=== PATIENT | male | born 1980 ===

== ENCOUNTER 2017-10-06 10:24 | Emergency (ER) | payer OTHER ==
[2017-10-06 12:17] VITALS: BP 121/83
--- NOTE | 2017-10-06 13:19 | ED ---
Back Pain - HPI Summary HPI Summary: Patient is a 36-year-old male who presents emergency department for tailbone pain times several days. Patient states he was at the park with his son a few days ago when he slipped on the wet ground and landed onto his bottom. He has been taking NSAIDs without relief of pain. Pain is worse with sitting. Standing makes symptoms better. He denies bowel or bladder incontinence or retention. Denies numbness, tingling or weakness to legs. Symptoms are mild in severity. No past medical history. - History of Current Complaint Chief Complaint: EDBackInjuryPain Stated Complaint: LWR BACK PAIN Time Seen by Provider: 10/06/17 11:34 Hx Obtained From: Patient Pain Intensity: 2 Pain Scale Used: 0-10 Numeric - Allergies/Home Medications Allergies/Adverse Reactions: Allergies Allergy/AdvReac Type Severity Reaction Status Date / Time No Known Allergies Allergy Verified 10/06/17 10:32 Home Medications: Home Medications NK [No Home Medications Reported] 10/06/17 [History Confirmed 10/06/17] PMH/Surg Hx/FS Hx/Imm Hx Previously Healthy: Yes Infectious Disease History: No Infectious Disease History: Denies: Traveled Outside the [place] in Last 30 Days - Social History Occupation: Employed Full-time Lives: With Family Alcohol Use: None Substance Use Type: Reports: None Smoking Status (MU): Never Smoked Tobacco Review of Systems Genitourinary: Negative Positive: Other - low back pain. Neurological: Negative Negative: Weakness, Paresthesia, Numbness All Other Systems Reviewed And Are Negative: Yes Physical Exam Triage Information Reviewed: Yes Vital Signs On Initial Exam: Initial Vitals Temp Pulse Resp BP Pulse Ox 98.6 F 86 15 128/84 100 10/06/17 10:28 10/06/17 10:28 10/06/17 10:28 10/06/17 10:28 10/06/17 10:28 Vital Signs Reviewed: Yes Appearance: Positive: Well-Appearing - Pt. standing in room in NAD. Skin: Positive: Warm, Dry Musculoskeletal: Positive: Other - Pain to coccyx on palpation. Full strength in legs. Ambulating without difficulty. Neurological: Positive: Normal, CN Intact II-III Psychiatric: Positive: Normal Diagnostics - Vital Signs Vital Signs Temp Pulse Resp BP Pulse Ox 10/06/17 12:16 98.2 F 82 17 121/83 97 10/06/17 10:28 98.6 F 86 15 128/84 100 - Laboratory Lab Statement: Any lab studies that have been ordered have been reviewed, and results considered in the medical decision making process. Back Pain Course/Dx - Course Course Of Treatment: Pt. presenting to the ER for a tailbone injury. He has no neurological deficits. Xrays were ordered. Before pt. went for xray he noted he needs to be discharged from the ER in 20 minutes. Explained xrays will not be performed and read in 20mins. Pt. wishes to be dc. Advised to use donut pillow for sitting. Tylenol or Motrin for pain as directed. Follow up with PCP. - Diagnoses Differential Diagnosis/HQI/PQRI: Positive: Fracture, Strain, Sprain Provider Diagnoses: Coccyx contusion Discharge - Sign-Out/Discharge Documenting (check all that apply): Discharge/Admit/Transfer - Discharge Plan Condition: Good Disposition: HOME Patient Education Materials: Coccyx Injury (ED) Referrals: [facility] [Outside] No Primary Care Phys,NOPCP [Primary Care Provider] - Additional Instructions: Call the referral line for a PCP Ice intermittently Use a donut pillow for sitting Tylenol or Motrin for pain as directed Return to ER if symptoms change or worsen - Billing Disposition and Condition Condition: GOOD Disposition: HOME
== END 2017-10-06 13:16 | disposition home or self-care (01) ==
LOC: ED 10:24
DX: S30.0XXA Contusion of lower back and pelvis, initial encounter (principal); W01.0XXA Fall on same level from slipping, tripping and stumbling without subsequent striking against object, initial encounter; Y92.830 Public park as the place of occurrence of the external cause
CPT/HCPCS: 99282